=== PATIENT | male | born 1965 | race Caucasian/White ===

== ENCOUNTER 2020-03-03 14:25 | Emergency (ER) | payer OTHER ==
[~2020-03-03] VITALS: Ht 180 cm; Wt 84.0 kg
[~2020-03-03 14:25] MED LIST: AZTH250C PO; BENZ100C18 PO; METH-313 PO; NAPR-1071 PO; PRD20T PO
--- NOTE | 2020-03-03 15:11 | ED Lower Extremity ---
General Chief Complaint: Laceration Stated Complaint: L LEG LAC Nursing Triage Note: PT STATES HE WAS USING A CHAIN SAW AND HIT HIS LT LEG WITH IT CAUSING A LACERATION. HAPPENED AT WORK AND IS WORK COMP. BLEEDING CONTROLLED AT TRIAGE. Nursing Sepsis Screen: No Definite Risk History of Present Illness Date Seen by Provider: Mar 03, 2020 Time Seen by Provider: 13:05 Initial Comments This is a 54-year-old male presents to the ER with laceration of his left diehl from a chainsaw accident. States he was cutting a tree with a chainsaw when it kicked back and accidentally cut his diehl. Incident occurred prior to arrival. Bleeding controlled with direct pressure. No other injuries reported. Rates pain 7 out of 10 at this time, describes as throbbing in nature, localized to laceration site. Last tetanus unknown. Allergies and Home Medications Allergies Coded Allergies: sulfamethoxazole (Verified Allergy, Unknown, 11/18/17) trimethoprim (Verified Allergy, Unknown, 11/18/17) Home Medications Azithromycin 250 Mg Tablet, 1 TAB PO DAILY Prescribed by: GUILLE BARRERA on 11/27/122222 Benzonatate 100 Mg Capsule, 200 MG PO Q8H PRN Prescribed by: GUILLE BARRERA on 11/27/12 222 Cephalexin 500 Mg Tablet, 500 MG PO TID Prescribed by: JHONNY JUNE on 03/03/20 160 Hydrocodone/Acetaminophen 1 Each Tablet, 1 EACH PO Q4H PRN for PAIN-MODERATE (5- 7) Prescribed by: JHONNY JUNE on 03/03/20 1603 Methocarbamol 750 Mg Tablet, 750 MG PO Q6H PRN for PAIN-MILD TO MODERATE Prescribed by: GUILLE BARRERA on 11/18/17 170 Naproxen 500 Mg Tablet, 500 MG PO BID Prescribed by: GUILLE BARRERA on 11/18/17 170 Prednisone 20 Mg Tab, 40 MG PO DAILY Prescribed by: GUILLE BARRERA on 11/27/122222 Patient Home Medication List Home Medication List Reviewed: Yes Review of Systems Constitutional: no symptoms reported EENTM: no symptoms reported Respiratory: no symptoms reported Cardiovascular: no symptoms reported Gastrointestinal: no symptoms reported Genitourinary: no symptoms reported Musculoskeletal: see HPI Skin: see HPI Psychiatric/Neurological: No Symptoms Reported Past Mhxlgig-Rjjbec-Ewuelk Hx Patient Social History Alcohol Use: Rarely Uses Alcohol Beverage of Choice: Beer Recreational Drug Use: No Type Used: Cigarettes 2nd Hand Smoke Exposure: No Recent Foreign Travel: No Contact w/Someone Who Travel: No Recent Infectious Disease Expo: No Recent Hopitalizations: No Seasonal Allergies Seasonal Allergies: Yes Past Medical History Surgeries: Yes (BACK) Gallbladder Respiratory: No Cardiac: No Neurological: No Genitourinary: No Gastrointestinal: Yes Gastroesophageal Reflux Musculoskeletal: No Endocrine: No HEENT: No Cancer: No Psychosocial: No Integumentary: No Blood Disorders: No Physical Exam Vital Signs Vital Signs - First Documented 03/03/20 14:42 Temp 37.4 Pulse 100 Resp 20 B/P (MAP) 121/89 (100) Pulse Ox 94 O2 Delivery Room Air Capillary Refill : Less Than 3 Seconds Height, Weight, BMI Height: 5'11.00" Weight: 195lbs. oz. 88.269190ai; 25.00 BMI Method:Stated General Appearance: WD/WN, no apparent distress HEENT: PERRL/EOMI, pharynx normal Neck: full range of motion, normal inspection Cardiovascular: regular rate, rhythm, no edema, no murmur Respiratory: lungs clear, normal breath sounds, no respiratory distress Gastrointestinal: normal bowel sounds, non tender, soft Back: normal inspection Hips: bilateral hip non-tender, bilateral hip normal inspection, bilateral hip normal range of motion Legs: bilateral leg non-tender, bilateral leg normal range of motion; left leg other (Superficial laceration to anterior diehl.) Feet: bilateral foot non-tender, bilateral foot normal inspection, bilateral foot normal range of motion Neurologic/Tendon: normal sensation, normal motor functions, normal tendon functions, responds to pain Neurologic/Psychiatric: no motor/sensory deficits, alert, normal mood/affect, oriented x 3 Skin: warm/dry, other (Approximate 6 cm superficial laceration to distal part of left anterior diehl.) Progress/Results/Core Measures Results/Orders My Orders Orders - JHONNY JUNE APRN Dipht,Pertuss(Acell),Tet Adult (Boostrix (03/03/20 15:15) Let Solution (Let Solution) (03/03/20 15:15) Tibia/Fibula, Left, 2 Views (03/03/20 15:11) Hydrocodone/Apap 5/325 Tablet (Lortab 5 (03/03/20 15:45) Medications Given in ED Current Medications Medications Dose Ordered Sig/Annie Route Start Time Stop Time Status Last Admin Dose Admin Acetaminophen/ Hydrocodone Bitart 1 tab ONCE ONCE PO 03/03/20 15:45 03/03/20 15:46 DC 03/03/20 15:52 1 TAB Diphtheria/ Tetanus/Acell Pertussis 0.5 ml ONCE ONCE IM 03/03/20 15:15 03/03/20 15:16 DC 03/03/20 15:51 0.5 ML Tetracaine/ Epinephrine/ Lidocaine 3 ml ONCE ONCE TOP 03/03/20 15:15 03/03/20 15:16 DC 03/03/20 15:17 3 ML Vital Signs/I&O 03/03/20 03/03/20 14:42 16:14 Temp 37.4 Pulse 100 84 Resp 20 20 B/P (MAP) 121/89 (100) 142/87 Pulse Ox 94 98 O2 Delivery Room Air Blood Pressure Mean: 100 Progress Progress Note : Progress Note Images of left tib-fib obtained to assess for chip fracture. No acute fractures appreciated. Laceration was superficial, cleansed well with chlorhexidine wash and saline. Applied LET for anesthetic, to help with pain. Reported minimal improvement with LET. Given hydrocodone 5/325 mg tab. Applied Xeroform to the laceration covered with 4 x 4 and Anselmo wrap. Reviewed wound care instructions and discharge plan, agreeable with discharge plan at this time. Tetanus updated today. Diagnostic Imaging Diagonstic Imaging: Xray Plain Films/CT/US/NM/MRI: leg Comments NAME: [facility] REC#: [id number] PT STATUS: DEP ER : [id number] PHYSICIAN: JHONNY JUNE APRN ADMIT DATE: 03/03/20/ER Signed Date of Exam:03/03/20 TIBIA/FIBULA, LEFT, 2 VIEWS EXAMINATION: Left tibia and fibula radiographs, 2 views. COMPARISON: None. HISTORY: 54-year-old male, chainsaw injury below the level of the mid diaphysis of the tibia and fibula. FINDINGS: There is material superficial to the patient near the level of the mid to distal diaphysis of the tibia. There is no identified radiopaque foreign body. There is no identified acute fracture. There is no cortical or aggressive bone destruction. There is degenerative type enthesopathy at the Achilles tendon insertion. IMPRESSION: 1. No identified radiopaque foreign body. 2. No identified acute osseous abnormality. Dictated by: Dictated on workstation # [id number] Dict: 03/03/20 1535 Trans: 03/03/201654 PJJay [id number] Interpreted by: NANDO GALLAGHER MD Electronically signed by: NANDO GALLAGHER MD 03/03/209 Departure Impression Primary Impression: Laceration Disposition: 01 HOME, SELF-CARE Condition: Improved Departure-Patient Inst. Decision time for Depature: 15:59 Referrals: NO,LOCAL PHYSICIAN (PCP/Family) Primary Care Physician Patient Instructions: Wound Care (DC) Add. Discharge Instructions: Plan: 1. Discharge home. 2. May take Tylenol or Ibuprofen as needed for pain per package. 3. May take Hydrocodone 5/325mg tab as needed every 4 hours for severe pain. 4. Keep dressing clean and dry. May wash with mild soap and water, pat dry. Cover with dry dressing. 5. Take antibiotics as directed and complete full course. Keep elevated as much as possible for the next 72 hours. 6. Return or follow up with your doctor if you develop signs of infection: redness/swelling, drainage, fever, nausea/vomiting. All discharge instructions reviewed with patient and/or family. Voiced understanding. Scripts Cephalexin (Cephalexin) 500 Mg Tablet 500 MG PO TID for 5 Days, #20 TAB 0 Refills Prov: JHONNY JUNE SOCIAL WORK NURSE 03/03/20 Hydrocodone/Acetaminophen (Hydrocodone-Acetamin 5-325 mg) 1 Each Tablet 1 EACH PO Q4H PRN for PAIN-MODERATE (5-7), #20 TAB 0 Refills Prov: JHONNY JUNE SOCIAL WORK NURSE 03/03/20 JHONNY JUNE SOCIAL WORK NURSE Mar 03, 2020 15:11
[2020-03-03] MEDS ORDERED: L.E.T. SOLUTION 3 ML SYR TOP ONE (15:15)
[2020-03-03] MEDS ORDERED: TETANUS,DIPTH,PERTUSS P/F (BOOSTRIX) 0.5 ML VIAL IM ONE (15:15)
[2020-03-03] MEDS ORDERED: HYDROcodone/APAP 5 MG/325 MG (LORTAB) TAB PO ONE (15:45)
--- NOTE | 2020-03-03 15:45 | Diagnostic Imaging Report ---
EXAMINATION: Left tibia and fibula radiographs, 2 views. COMPARISON: None. HISTORY: 54-year-old male, chainsaw injury below the level of the mid diaphysis of the tibia and fibula. FINDINGS: There is material superficial to the patient near the level of the mid to distal diaphysis of the tibia. There is no identified radiopaque foreign body. There is no identified acute fracture. There is no cortical or aggressive bone destruction. There is degenerative type enthesopathy at the Achilles tendon insertion. IMPRESSION: 1. No identified radiopaque foreign body. 2. No identified acute osseous abnormality. Dictated by: Dictated on workstation # [id number]
[2020-03-03] MEDS ORDERED: CEPH500T PO (16:03)
[2020-03-03] MEDS ORDERED: ACHD5005 PO (16:03)
[2020-03-03 16:14] VITALS: BP 142/87
== END 2020-03-03 16:14 | disposition home or self-care (01) ==
LOC: EDUNIT# 14:25 → ER 14:27
DX: S81.812A Laceration without foreign body, left lower leg, initial encounter (principal); Z88.2 Allergy status to sulfonamides; Z88.1 Allergy status to other antibiotic agents; Z23 Encounter for immunization; Z79.52 Long term (current) use of systemic steroids; W29.3XXA Contact with powered garden and outdoor hand tools and machinery, initial encounter
CPT/HCPCS: 73590; 90715